=== PATIENT | female | born 1940 | race Caucasian/White ===

== ENCOUNTER 2022-12-07 18:38 | Emergency (ER) | payer MEDICARE, SELFPAY ==
--- NOTE | 2022-12-07 18:48 | ED.GENADULT ---
HPI - General Adult General Chief complaint: Upper Respiratory Infection Stated complaint: sorethroat Source: patient, family and RN notes reviewed History of Present Illness HPI narrative: 82 yo F Presents to urgent care with granddaughter at side. Pt states she began having a sore throat and cough on Sunday. Pt states her symptoms have gotten progressively worse. Pt states she was coughing up phlegm yesterday but nothing today. Pt states her cough is much worse at nighttime and when she lays down. DEnies any fevers, chills, SOB, chest pain, ear pain, congestion, or vomiting. Related Data Home Medications Medication Instructions Recorded Confirmed rosuvastatin 5 mg tablet (Crestor) 5 mg PO DAILY 02/22/22 12/07/22 calcium carbonate 600 mg calcium 600 mg PO DAILY 04/17/22 12/07/22 (1,500 mg) tablet cholecalciferol (vitamin D3) 50 50 mcg PO DAILY 04/17/22 12/07/22 mcg (2,000 unit) capsule magnesium oxide 200 mg PO DAILY 04/17/22 12/07/22 Allergies Allergy/AdvReac Type Severity Reaction Status Date / Time tetracycline Allergy Unknown Unknown Verified 12/07/22 18:53 Review of Systems Review of Systems: Pertinent positives and pertinent negatives per HPI. [facility] Past Medical History Medical History Allergic rhinitis Atherosclerosis of coronary artery without angina pectoris Dyslipidemia GERD (gastroesophageal reflux disease) HTN (hypertension), benign Hypothyroidism Obesity Osteoarthritis Osteoporosis URI (upper respiratory infection) Urinary incontinence Vitamin B12 deficiency Vitamin D deficiency Surgical History Surgical History Hx of cholecystectomy Family History Family History Other Cerebrovascular accident Family history of arthritis Family history of malignant neoplasm Hypertension Social History Social History Smoking status: Never smoker Alcohol intake: current Substance use: never Living arrangements: with family Occupation/Education: retired Gender identity (if verbalized by the patient): Female Comments At the time of my signature, I reviewed and agree with the nursing past medical, surgical, social, and family history. There is no relevant family history pertinent to the patient complaint. Exam Narrative: GENERAL: This is a well-nourished, well-developed patient, in no apparent distress. HEAD: normocephalic, atraumatic. EYES: Sclera clear/white. Vision is grossly intact. EARS: External ears normal, auditory canals clear and without drainage. Hearing grossly intact. NOSE: External nose normal with no obvious nasal discharge, nares without redness, no rhinorrhea. THROAT: Mucous membranes moist, posterior pharynx erythremic. NECK: Neck supple, non-tender without lymphadenopathy, masses or thyromegaly. CARDIOVASCULAR: Regular rate and rhythm without murmurs, gallops, or rubs. RESPIRATORY: Clear to auscultation. Breath sounds equal bilaterally. No wheezes, rales, or rhonchi. Pt having a dry, hacky, cough frequently in exam room. SKIN: warm, intact with no suspicious lesions or rash, good texture and turgor. NEURO: awake, alert, and oriented to person, place and time. There were no obvious focal neurologic abnormalities. Course Course Level of Care: Express Care Visit Vital Signs Vital signs: Vital Signs Temperature 97.8 F 12/07/22 18:50 Pulse Rate 87 12/07/22 18:50 Respiratory Rate 18 12/07/22 18:50 Blood Pressure 125/68 12/07/22 18:50 Pulse Oximetry 96 12/07/22 18:50 Oxygen Delivery Room Air 12/07/22 18:50 Temperature 97.8 F 12/07/22 18:50 Pulse Rate 87 12/07/22 18:50 Respiratory Rate 18 12/07/22 18:50 Blood Pressure 125/68 12/07/22 18:50 Pulse Oximetry 96 12/07/22 18:50 O
[2022-12-07 18:50] VITALS: BP 125/68; PULSE 87; RESP 18; TEMP 36.6; O2SAT 96
[2022-12-07] MEDS: predniSONE 20 MG TABLET 60 MG PO (19:35)
== END 2022-12-07 19:39 | disposition home or self-care (01) ==
PROVIDERS: Emergency Provider Nurse Practitioner Family; PCP Physician Assistant Medical
DX: J40 Bronchitis, not specified as acute or chronic (principal); J02.9 Acute pharyngitis, unspecified; I25.10 Atherosclerotic heart disease of native coronary artery without angina pectoris; E78.5 Hyperlipidemia, unspecified; K21.9 Gastro-esophageal reflux disease without esophagitis; I10 Essential (primary) hypertension; E03.9 Hypothyroidism, unspecified; E66.9 Obesity, unspecified; Z68.30 Body mass index [BMI] 30.0-30.9, adult; M19.90 Unspecified osteoarthritis, unspecified site; M81.0 Age-related osteoporosis without current pathological fracture; E55.9 Vitamin D deficiency, unspecified
CPT/HCPCS: 87081; 87880; 99213; G0463; J7512

== ENCOUNTER 2023-12-13 12:30 | Outpatient (RCR) | payer MEDICARE, SELFPAY ==
--- NOTE | 2023-10-24 18:41 | PTOPEVAL1 ---
Assessment and note entered by Barbara Baugh, PT Evaluation Information Assessment Status Evaluation Diagnosis presence of right artificial knee joint, pain in right knee Therapy condition weakness oth abnormalities of gait and mobility Onset 4 years Subjective Information Pt reports has had her right knee done twice. States first time was around 2014, had to be redone about 2019 Pt states after revision the pain never went away. Stairs increase pain. States can move around no problem, can bend and touch floor. Isn't sure what bothers it, maybe the pressure. Reported Pain Level Pain Score 3: Self Report Additional Pain Score Comments has always felt strange Assessment PT Clinical Summary Pt reports continued pain in right knee after her revision. Reports pain is numb and achy in nature. Multiple areas of adhesions through RLE, decreased flexibility iliotibial band, decreased LE strength. Pt demo's possible RLE length discrepancy, increased adhesions, and decreased strength. Pt does report improvement in right knee discomfort with lumbar distraction and with repeated lumbar extension. Pain in right knee appears highly related to lumbar alignment and possible nerve issue. Pt will greatly benefit from therapy to address soft tissue extensibility, flexibility, strength, and alignment in order to reduce pain, and improve function. Plan of Care Interventions Electrical Stimulation,Gait Training,Manual Therapy,Patient/Caregiver Educati,Therapeutic Activities,Therapeutic Exercise,Self-Care/Home Management,Ultrasound PT Services Indicated Yes Treatment Frequency and 1-2x weekly x 20 visits Duration These treatments will address the objective and functional deficits as defined above. The patient will be advanced safely and appropriately in order for the patient to progress towards his/her prior level of function. Additional exercises will be introduced and as well as a comprehensive home exercise program upon discharge, if needed, ?to ensure carryover of functional gains achieved in the clinic. This treatment plan has been reviewed and agreement upon by the patient.
--- NOTE | 2023-10-24 18:41 | OPREHPOC ---
Outpatient Therapy Plan of Care This is a Multidisciplinary Plan of Care that may contain components documented by all disciplines (PT, OT, and ST.) PT Goal 1 Goal Pt will be independent in HEP Pt will verbalize understanding of diagnosis and prognosis Target Visit 10 PT Problem 2 PT Problem #2 Impaired Flexibility PT Goal 1 Goal Pt will demo improved iliotibial band length to mildly tight Target Visit 10 PT Problem 3 PT Problem #3 Pain PT Goal 1 Goal Pt will report greatest pain level at 5/10 or less to improve ADLs and activities Target Visit 10 PT Goal 2 Goal Pt will report greatest pain level at 3/10 or less to improve ADLs and activities Target Visit 20 PT Problem 4 PT Problem #4 Impaired Strength PT Goal 1 Goal Pt will demo 3/5 in R glute medius for improved knee stability Target Visit 10 PT Goal 2 Goal Pt will demo strength of 4/5 in all tested planes Target Visit 20
--- NOTE | 2023-11-26 09:06 | PCPTNOTE ---
No call no show this date, reason unknown. DEBOS
--- NOTE | 2023-11-26 10:59 | PCPTNOTE ---
6-09-15 addendum Pt gautam and recieved treatment this date. AKS
--- NOTE | 2023-12-13 13:40 | PTOPDC ---
Assessment and note entered by Barbara Bauhg, PT Assessment Status Discharge Diagnosis presence of right artificial knee joint, pain in right knee Onset 4 years Subjective Information Pt reports can do steps easier. States yesterday had a pedicure with deep tissue work and states noted on the right felt better than usual so knows she has been working. States after she eats out her right ankle will get swollen. States today knee feels full and swollen . States exercises are going ok. State feels her legs are much stronger, can get up and down easier . Can walk up steps easier, still has pain but is easier to walk up. Reports cramping in legs has lessened, has been drinking more water and stretching in the back of the leg. Self-perceived improvement: at least 50% Reported Pain Level Pain Score 0: Self Report Additional Pain Score Comments right knee feels swollen today. Assessment PT Clinical Summary Pt has attended therapy consistently for right knee pain. Pt reports feeling 50% improved overall , demo's improved iliotibial band flexibility, increased RLE strength, and has met most of her therapy goals. Pt reports due to family issues she is unable to continue therapy at this time. Pt has been educated on continuation of exercises and return to therapy when is needed and is able. Thus patient is being discharged per request. Plan of Care PT Services Indicated No
== END 2023-12-13 14:44 | disposition home or self-care (01) ==
LOC: ANHHIPT 12:30
PROVIDERS: PCP Physician Assistant Medical; Visit Provider Family Medicine
DX: M25.561 Pain in right knee (principal); Z96.651 Presence of right artificial knee joint
CPT/HCPCS: 97110; 97116; 97140; 97162; 97530; 97750

== ENCOUNTER 2024-04-22 12:47 | Outpatient (CLI) | payer MEDICARE, SELFPAY ==
--- NOTE | ~2024-04-22 | CT_ITS ---
EXAMINATION: CT shoulder LT wo con DATE: 04/22/2024 13:04 INDICATION: Abnormal findings on diagnostic imaging. Lytic lesion in left humeral head. TECHNIQUE: Computed tomography (CT) of the left shoulder was performed without intravenous contrast. Automated exposure control and iterative reconstruction technique were employed. The dose-length prod uct was 444.76 mGy-cm. COMPARISON: Left shoulder radiographs 03/20/2024 FINDINGS: Alignment is normal. No fracture. There is moderate osteoarthritis of acromioclavicular fransisco nt and glenohumeral joint. Osteopenia is noted. IMPRESSION: 1. Moderate polyarticular osteoarthritis. 2. Osteopenia, which correlates with the radiographic finding. Reviewed, dictated and finalized at location B.
== END 2024-04-22 12:48 | disposition home or self-care (01) ==
LOC: MICIMG 12:48
PROVIDERS: PCP Physician Assistant Medical; Visit Provider Physician Assistant Medical
DX: R93.6 Abnormal findings on diagnostic imaging of limbs (principal)
CPT/HCPCS: 73200

== ENCOUNTER 2024-06-24 09:15 | Outpatient (RCR) | payer MEDICARE, SELFPAY ==
--- NOTE | 2024-04-09 11:58 | PTOPEVAL1 ---
Assessment and note entered by Fabienne Dukes, PT Evaluation Information Assessment Status Evaluation Diagnosis R29.898 ICD-10 Condition Codes (PT) M25.511,M25.561,Pain in left knee M25.562, Difficulty Walking R26.2,R26.9 Onset 03/27/2024 Assessment PT Clinical Summary Pt is an 84 yo patient referred to therapy due to increased bilat knee pain and shoulder pain, demos ROM deficits to bilat knee flexoion which impacts her ability to perform ADLs and IADLs and increased her risk for falls during ambulation on ground and stairs. Pt would benefit from skilled PT to improve functional mobility, improve strength and stability in order to perform pain free and indep functional ambulation and reduce risk for falls. Plan of Care Interventions Check Out for Orthotic/Pr,Electrical Stimulation, Gait Training,Hot Pack/Cold Pack,Manual Therapy, Neuro Re-education,Patient/Caregiver Education, Therapeutic Activities,Therapeutic Exercise, Ultrasound,Other Other Interventions IASTM, Taping PT Services Indicated Yes Treatment Frequency and 2x/12 vixits Duration These treatments will address the objective and functional deficits as defined above. The patient will be advanced safely and appropriately in order for the patient to progress towards his/her prior level of function. Additional exercises will be introduced and as well as a comprehensive home exercise program upon discharge, if needed, ?to ensure carryover of functional gains achieved in the clinic. This treatment plan has been reviewed and agreement upon by the patient.
--- NOTE | 2024-04-24 15:19 | PCPTNOTE ---
LATE ENTRY This note is being entered to document information to the patient's record. The following information was omitted on [04/16/2024], by [Fabienne Dukes, PT]. Intermittent Compression Pump RLE knee Patient position: supine Intensity SettinmmHg Treatment Duration: 15 Reason for Treatment: Edema, Increase circulation, Pain management Response to treatment: reduce edema, reduce pain Power Play intermittent compression pump with ice, RLE elevated on a wedge and pillow to position above heart level, utilized tubi-jitney driver for support.
--- NOTE | 2024-04-24 15:22 | PCPTNOTE ---
LATE ENTRY This note is being entered to document information to the patient's record. The following information was omitted on [04/16/2024], by [Fabienne Dukes,PT]. Functional Therapeutics: Pt educated on benefits of compression therapy and cryotherapy, compliance with exercises and importance of elevating BLE at end of day to reduce swelling. Instructed in return demo of patellar mobilization to perform on bilat knees, handouts provided for reference.
--- NOTE | 2024-04-29 17:02 | PCPTNOTE ---
Pt cancelled appointment today due to being sick with covid
--- NOTE | 2024-05-23 08:17 | PCPTNOTE ---
No show, reason unknown. AKS
--- NOTE | 2024-05-30 19:57 | PTOPPROG ---
Assessment and note entered by Fabienne Dukes, PT Re-Eval Information Assessment Status Progress Diagnosis R29.898 ICD-10 Condition Codes (PT) M25.511,M25.561,Pain in left knee M25.562, Difficulty Walking R26.2,R26.9 Onset 03/27/2024 Subjective Information Pt reports that she doesn't have any pain in her knees anymore and the swelling is gone away . However, she states that she feels weak in the knees, that is what's bothering me, It scares me . Assessment PT Clinical Summary Pt demos good progress with skilled PT and showed gains in mobility and strength. Reports significant reduction in pain and stiffness which initially affected her ambulation and functional mobility. However, she reports fear of falls and continued weakness and instability to bilateral LEs, she scored 20 on Tinetti Assessment Scale for Balance indicating a moderate risk for falls. Pt will benefit from continued skilled PT interventions to further improve core and BLE strength and stability and gait training, postural and balance training to improve safety and reduce risk for falls. Plan of Care Interventions Check Out for Orthotic/Pr,Electrical Stimulation, Gait Training,Hot Pack/Cold Pack,Intermittent Compression,Manual Therapy,Neuro Re-education, Patient/Caregiver Education,Therapeutic Activities, Therapeutic Exercise,Ultrasound,Other Other Interventions IASTM,Taping PT Services Indicated Yes Treatment Frequency and 1x/wk x 6 visits Duration These treatments will address the objective and functional deficits as defined above. The patient will be advanced safely and appropriately in order for the patient to progress towards his/her prior level of function. Additional exercises will be introduced and as well as a comprehensive home exercise program upon discharge, if needed, ?to ensure carryover of functional gains achieved in the clinic. This treatment plan has been reviewed and agreement upon by the patient.
--- NOTE | 2024-05-30 19:57 | OPREHPOC ---
Outpatient Therapy Plan of Care This is a Multidisciplinary Plan of Care that may contain components documented by all disciplines (PT, OT, and ST.) PT Problem 1 PT Problem #1 Knowledge Deficit PT Goal 1 Goal / Goal Update Pt will perform HEPs for core and BLE strength and flexibility. Target Visit 6 PT Problem 2 PT Problem #2 Impaired Balance PT Goal 1 Goal / Goal Update Pt will demo Tinetti Assessment Score of 24/28 to improve balance and reduce risk for falls. Target Visit 8 PT Problem 3 PT Problem #3 Impaired Strength PT Goal 1 Goal / Goal Update Pt will demo 5/5 strength to all tested planes of BLE Target Visit 8 PT Problem 4 PT Problem #4 Impaired Gait PT Goal 1 Goal / Goal Update Pt will perform normalized gait pattern without pain and discomfort on various surfaces smooth and uneven, and stairs. Target Visit 8
== END 2024-06-29 23:59 | disposition home or self-care (01) ==
LOC: ANHHIPT 09:15
PROVIDERS: PCP Physician Assistant Medical; Visit Provider Physician Assistant Medical
DX: R29.898 Other symptoms and signs involving the musculoskeletal system (principal); M25.511 Pain in right shoulder; M25.561 Pain in right knee; M25.562 Pain in left knee; R26.2 Difficulty in walking, not elsewhere classified; R26.9 Unspecified abnormalities of gait and mobility
CPT/HCPCS: 97014; 97016; 97035; 97110; 97112; 97116; 97140; 97161; 97530; 97750; G0283

== ENCOUNTER 2024-07-23 09:15 | Outpatient (RCR) | payer MEDICARE, SELFPAY ==
--- NOTE | 2024-07-17 10:13 | PTOPPROG ---
Assessment and note entered by Fabienne Dukes, PT Progress Information Assessment Status Progress Diagnosis R29.898 ICD-10 Condition Codes (PT) Pain in right shoulder M25.511,Pain in right knee M25.561,Pain in left knee M25.562,Difficulty Walking R26.2,Abnormalities of gait and mobility R26.9 Onset 03/27/2024 Subjective Information Pt reports she is feeling well and states feels that she is walking better, heel support is helpful. Assessment PT Clinical Summary Pt demos good progress with skilled PT and showed gains in mobility and strength. Reports she wants to continue remaining visits to focus more on indep HEP performance, improving balance and stability to improve activity tolerance and safety with performing functional mobility, reduce risk for falls and improve performance of IADLs. Plan of Care Interventions Check Out for Orthotic/Prosthetic,Electrical Stimulation,Gait Training,Hot Pack/Cold Pack, Intermittent Compression Pump,Manual Therapy,Neuro Re-education,Patient/Caregiver Education, Therapeutic Activities,Therapeutic Exercise, Ultrasound,Other Other Interventions IASTM, Taping PT Services Indicated Yes Treatment Frequency and 1x/wk x 2 visits Duration These treatments will address the objective and functional deficits as defined above. The patient will be advanced safely and appropriately in order for the patient to progress towards his/her prior level of function. Additional exercises will be introduced and as well as a comprehensive home exercise program upon discharge, if needed, ?to ensure carryover of functional gains achieved in the clinic. This treatment plan has been reviewed and agreement upon by the patient.
--- NOTE | 2024-07-24 18:00 | PTOPDC ---
Assessment and note entered by Fabienne Dukes, PT Discharge Information Assessment Status Discharge Diagnosis R29.898 ICD-10 Condition Codes (PT) Pain in right shoulder M25.511,Pain in right knee M25.561,Pain in left knee M25.562,Difficulty Walking R26.2,Abnormalities of gait and mobility R26.9 Onset 03/27/2024 Subjective Information Pt reports she is feeling well and states feels that she is walking better, heel support is helpful. Reported Pain Level Pain Score 0: Self Report Additional Pain Score Comments reports mild stiffness to bilat knee and ankles Assessment PT Clinical Summary Pt completed a total of 18 treatment sessions and demos good progress with therapy. She has met established goals and reports noticed improvement in walking pattern and tolerance. Tinetti Assessment score indicated a low risk for falls, improved dynamic standing balance and ambulation on various surfaces and stairs. Skilled PT interventions discontinued at this time. Plan of Care PT Services Indicated No
== END 2024-07-25 09:50 | disposition home or self-care (01) ==
LOC: ANHHIPT 09:15
PROVIDERS: PCP Physician Assistant Medical; Visit Provider Physician Assistant Medical
DX: R29.898 Other symptoms and signs involving the musculoskeletal system (principal)
CPT/HCPCS: 97110; 97112; 97140; 97750